=== PATIENT | male | born 1945 | race Caucasian/White ===

== ENCOUNTER 2025-02-07 08:18 | Inpatient (IN) | payer MEDICARE, BC ==
[~2025-02-07] VITALS: Ht 182.9 cm; Wt 93.0 kg
[2025-02-07] MEDS ORDERED: VANCOMYCIN 1 GM VIAL ONE (10:25)
[2025-02-07] MEDS ORDERED: dexaMETHasone SOD PHOSPHATE 1 ML ONE (10:25)
[2025-02-07] MEDS ORDERED: LIDOCAINE 2%-EPI 1:100,000 30 ML VIAL ONE (10:26)
[2025-02-07] MEDS ORDERED: ANESTHESIA TRAY IN PYXIS 1 EA TRAY MC ONE (10:27)
[2025-02-07] MEDS ORDERED: FENTANYL PF 100MCG/2ML AMPUL ONE (10:29)
[2025-02-07] MEDS ORDERED: ROCURONIUM BROMIDE 50 MG/5 ML ONE (10:29)
[2025-02-07] MEDS ORDERED: FAMOTIDINE/PF INJ 20 MG/2 ML VIAL IV ONE (10:29)
[2025-02-07] MEDS ORDERED: SUCCINYLCHOLINE CHLORIDE 20 MG/ML VIAL ONE (10:29)
[2025-02-07] MEDS ORDERED: OXYMETAZOLINE HCL NASAL SPRAY 30 ML BOTTLE NS ONE (10:30)
[2025-02-07] MEDS ORDERED: ESMOLOL INJ 100 MG/10 ML VIAL IV ONE (10:30)
[2025-02-07 13:30] VITALS: BP 138/78; TEMP 98.2; O2SAT 94
[2025-02-07] MEDS ORDERED: ONDANSETRON HCL/PF 4 MG/2 ML VIAL IV PRN (14:00)
[2025-02-07] MEDS ORDERED: HYDROMORPHONE 1 MG/1 ML DISP.SYRIN IV PRN (14:00)
[2025-02-07 16:00] VITALS: BP 149/83; TEMP 98.2; O2SAT 99
[2025-02-07] MEDS: ACETAMINOPHEN 325 MG TABLET PO PRN (16:32)
[2025-02-07] MEDS: IV NS 0.9% 1,000 ML IV PRN (17:36)
[2025-02-07 20:18] VITALS: BP 130/66; TEMP 99.1; O2SAT 95
[2025-02-07] MEDS: HYDROCODONE/APAP 5/325MG TABLET PO PRN (21:29)
[2025-02-07] MEDS: VANCOMYCIN 1 GM in IV D5W 250ml IV SCH (22:01)
[2025-02-08 08:00] VITALS: BP 116/67; TEMP 97.3; O2SAT 98
== END 2025-02-08 16:15 | disposition home or self-care (01) | DRG 141 ==
LOC: DS 08:18 → MED 13:46
PROC: 0NST0ZZ Reposition Right Mandible, Open Approach (ICD-10-PCS; 2025-02-07)
PROC: 0NUT07Z Supplement Right Mandible with Autologous Tissue Substitute, Open Approach (ICD-10-PCS; 2025-02-07)
PROC: 0NUR07Z Supplement Maxilla with Autologous Tissue Substitute, Open Approach (ICD-10-PCS; 2025-02-07)
PROC: 0N5R0ZZ Destruction of Maxilla, Open Approach (ICD-10-PCS; 2025-02-07)
PROC: 0N5T0ZZ Destruction of Right Mandible, Open Approach (ICD-10-PCS; 2025-02-07)
PROC: 09UR07Z Supplement Left Maxillary Sinus with Autologous Tissue Substitute, Open Approach (ICD-10-PCS; 2025-02-07)
PROC: 0NUR0JZ Supplement Maxilla with Synthetic Substitute, Open Approach (ICD-10-PCS; 2025-02-07)
PROC: 0NSR04Z Reposition Maxilla with Internal Fixation Device, Open Approach (ICD-10-PCS; principal; 2025-02-07 10:15)
DX: S02.40DA Maxillary fracture, left side, initial encounter for closed fracture (principal); M87.9 Osteonecrosis, unspecified; S02.40CA Maxillary fracture, right side, initial encounter for closed fracture; S02.609A Fracture of mandible, unspecified, initial encounter for closed fracture; M27.2 Inflammatory conditions of jaws; E78.5 Hyperlipidemia, unspecified; E11.9 Type 2 diabetes mellitus without complications; I10 Essential (primary) hypertension; M10.9 Gout, unspecified; X58.XXXA Exposure to other specified factors, initial encounter; Y92.9 Unspecified place or not applicable; Z82.49 Family history of ischemic heart disease and other diseases of the circulatory system; J32.0 Chronic maxillary sinusitis
CPT/HCPCS: 82962-TC; 88305-TC; 88311-TC; A4338; C1713; C1781; G0378; J0330; J1100; J1308; J2704; J2765; J3010; J3373; J3490; J7030; J7050; J7060